=== PATIENT | female | born 1955 | race Caucasian/White ===

== ENCOUNTER 2022-11-27 03:08 | Emergency (ER) | payer OTHER, BC ==
[2022-11-27] MEDS ORDERED: ACYCLOVIR 400 MG TABLET PO ONE (03:31)
[2022-11-27 03:34] VITALS: BP 156/95; PULSE 86; RESP 18; TEMP 97.5; BMI 20.6
[2022-11-27] MEDS ORDERED: valACYclovir HCL 500 MG TABLET (FP) ONE (03:48)
== END 2022-11-27 03:53 | disposition home or self-care (01) ==
LOC: FER 03:08
DX: B02.9 Zoster without complications (principal)
CPT/HCPCS: 93005; 93010; 99283-25